=== PATIENT | female | born 1960 | race Caucasian/White ===

== ENCOUNTER 2016-08-07 23:40 | Emergency (ER) | payer BC ==
--- NOTE | 2016-08-09 00:11 | ER ---
ADMIT: 08/07/2016 RM/LOC: ER [facility] MR#: [id number] [address] [id number] SUDHIR HAMM [address] [place] [address] Emergency Room Report SEX: F AGE: 55 : 1960 DATE: 08/07/2016 TIME: 2340 hours. Please refer to my T-sheet for complete H and P. HISTORY OF PRESENT ILLNESS: Briefly, the patient is a 55-year-old, who comes in with short of breath, worse with exertion, tingling all over legs and feet. She has been under a lot of stress recently. She does have a history of high cholesterol and a history of anxiety. She came from work. PHYSICAL EXAMINATION: VITAL SIGNS: Blood pressure 131/73, pulse 108, respirations 12, temp 96.9, saturating 98%. GENERAL: She is in no acute distress. HEENT: Grossly normal. LUNGS: Clear. HEART: Regular. ABDOMEN: Soft. SKIN: No rash. NEURO: Alert and oriented, nonfocal. EMERGENCY DEPARTMENT COURSE: EKG was sinus rhythm, rate 106, no changes. Chest x-ray, no acute disease. CBC normal. Chemistries normal except CO2 of 19, creatinine 1.2. Troponin was negative. We gave her 1 mg Ativan IV, her symptomatology all resolved. She is feeling better. I had a long discussion with her. She was ready for discharge. ASSESSMENT: 1. Atypical chest pain. 2. Anxiety. PLAN: Decrease stress. Return if worse. I want her to see Dr. Turner this week. Carlos Lovett MD/ rabia JOB #: [id number] CC: Carlos Lovett MD, Attending Physician
== END 2016-08-08 01:20 | disposition home or self-care (01) ==
LOC: ER 23:40
DX: R07.89 Other chest pain (principal); F41.9 Anxiety disorder, unspecified; E78.5 Hyperlipidemia, unspecified; E03.9 Hypothyroidism, unspecified; Z88.2 Allergy status to sulfonamides; Z79.899 Other long term (current) drug therapy

== ENCOUNTER → 2016-09-19 | Outpatient (CLI) | payer BC | END | disposition home or self-care (01) | LOC: RAD.S 07:20 | DX: Z12.31 Encounter for screening mammogram for malignant neoplasm of breast (principal) ==

== ENCOUNTER → 2017-02-06 | Outpatient (CLI) | payer BC | END | disposition home or self-care (01) | LOC: RAD.S 08:00 | DX: N39.0 Urinary tract infection, site not specified (principal) ==